=== PATIENT | female | born 2005 | race Two or more races ===

== ENCOUNTER 2024-06-03 20:04 | Emergency (ER) | payer OTHER ==
[~2024-06-03] VITALS: Ht 170.2 cm; Wt 63.5 kg
[2024-06-03] MEDS ORDERED: TOPAMAX25 MG (20:44)
[2024-06-03] MEDS ORDERED: LEXAPRO20 MG (20:44)
[2024-06-03] MEDS ORDERED: DEXTROSE 5 %-0.45 % SOD CHLORD 500 ML IV SCH (22:30)
[2024-06-03] MEDS ORDERED: KETOROLAC TROMETHAMINE 30 MG VIAL IV ONE (22:30)
[2024-06-03] MEDS ORDERED: 0.9 % SODIUM CHLORIDE 1,000 ML IV SCH (22:45)
[2024-06-03 23:04] LABS: HEMOGLOBIN 13.8 g/dL (12.0-15.00); MEAN CELL VOLUME 85.8 fL (80.00-100.00); MEAN CORPUSCULAR HEMOGLOBIN 28.8 pg (27.00-32.0); MEAN CORPUSCULAR HGB CONC 33.5 g/dl (32.0-36.0); PLATELET COUNT 187 K/uL (150-450); RED BLOOD COUNT 4.78 M/uL (4.00-6.00); RED CELL DISTRIBUTION WIDTH 13.7 % (11.5-14.5)
[2024-06-03 23:28] LABS: ALBUMIN 3.9 gm/dL (3.4-5.0); BILIRUBIN TOTAL 0.61 mg/dL (0.3-1.2); CREATININE SERUM 1.01 mg/dL (0.55-1.02); GFR 70.61; GLOBULINA 3.2 G/DL (2.4-3.5); POTASSIUM 3.32 mEq/L (3.5-5.1); TOTAL PROTEIN 7.1 gm/dL (6.4-8.2)
[2024-06-03 23:41] LABS: URINE APPEARANCE Cloudy; URINE BILIRRUBIN Negative (NEGATIVE); URINE BLOOD Negative; URINE COLOR Dark Yellow; URINE GLUCOSE Negative (NEGATIVE); URINE KETONE Negative (NEGATIVE); URINE LEUKOCYTE Trace; URINE NITRATE Negative; URINE PROTEIN Negative (NEGATIVE); URINE UROBILINOGEN 0.2 E.U./dl
[2024-06-03 23:42] LABS: URINE BACTERIA 905.5 uL (0.0-1933); URINE EPITHELIAL CELLS 19.7 uL (0.0-38.8)
[2024-06-03 23:55] LABS: URINE CAST 0.14 uL (0.0-1.40); URINE RBC 0.5 uL (0.0-20.8)
[2024-06-04 00:04] LABS: COCAINE NEGATIVE (NEGATIVE); METHADONE NEGATIVE (NEGATIVE); OPIATES NEGATIVE (NEGATIVE); THC ( Cannabinoids) NEGATIVE (NEGATIVE)
[2024-06-04 01:19] VITALS: BP 112/68; O2SAT 99
== END 2024-06-04 01:21 | disposition home or self-care (01) ==
LOC: ER 20:04 → EMR PED 20:22 → ER 20:22 → EMR PED 06-04 01:21
PROVIDERS: Emergency Medicine Pediatric Emergency Medicine
DX: R42 Dizziness and giddiness (principal); R51.9 Headache, unspecified; E86.0 Dehydration; G43.809 Other migraine, not intractable, without status migrainosus; F41.1 Generalized anxiety disorder; Z20.822 Contact with and (suspected) exposure to COVID-19